=== PATIENT | female | born 2000 | race Caucasian/White ===

== ENCOUNTER 2024-08-08 10:30 | Outpatient (AMB) | payer OTHER, SELFPAY ==
--- NOTE | 2024-08-08 10:34 | A.OFFPC_ITS ---
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 Allergies No Known Allergies Allergy (Verified 08/08/24 10:40) Tobacco use date assessed: 08/08/24 Dental Screening Dental Screen Date: 08/08/24 Did you have a dental visit in the last 12 months?: Yes Did you have a dental problem in the last 6 months where you did not have access to dental care?: No Was dental information given to patient?: Patient has dentist HPI HPI Comments History of Present Illness Details This is a 24-year-old female presenting to establish care. She was last seen in her Pediatrics office around the age of 22. No prior medical records available today. Patient has been having an issue with her left ear for the past month. She says it is sometimes painful like a stinging sensation. It comes and goes. The hearing also is a little muffled and it sounds crackly sometimes. No discharge,fevers, chills, headaches, dizziness. She also endorses a long history of knee pain. This began about 5 years ago. She is followed by [facility]. Patient says she played football in high school but denies any specific injury. No prior surgeries. Reports getting multiple cortisone injections and gel injections and having physical therapy. Patient reports she has had an MRI and x-ray with her orthopedic specialists, but she feels like there is more going on with her knee. 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 She is referred to [facility]. ROS: Constitutional: No unexplained weight loss, fever, chills, fatigue or night sweats. Eyes: No vision changes, blurry vision, double vision, eye pain, eye redness, eye discharge. ENT: denies Sore throat, sinus congestion, runny nose or sneezing. Neurologic: No headache, dizziness, syncope, unilateral weakness, ataxia, numbness or tingling in the extremities. Musculoskeletal: No muscle pain, back pain , see HPI Skin: No rash or tick bites. 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 Psychiatric: No depression or anxiety. Physical exam: Constitutional: Alert, in no distress. Eyes: Pupils are equal, round and reactive to light. Extraocular muscles intact. Ear, Nose and Throat: negative tech test bilaterally. Mastoids nontender bilaterally. No otorrhea bilaterally.. There is mild erythema and mild swelling of the left ear canal. Both canals are occluded by dried brown wax. The TMs are not able to be visualized. Normal nasal mucosa. No nasal discharge. No oral lesions. Neck: Supple, Full range of motion. No lymphadenopathy. Respiratory: Clear to auscultation. Cardiovascular: S1 S2 regular. No murmurs. Knees: Bilateral with no edema or discoloration. Anterior right knee is tender to palpation. There is bilateral knee crepitus. Gait is normal. She has full range of motion of the knees. Negative Stuart maneuver bilaterally. [facility], [facility] Medical History (Updated 08/08/24 @ 13:54 by VAN Faust) Impacted cerumen, bilateral Left otitis externa Chronic pain of right knee Screening for cardiovascular condition Social History (Updated 08/08/24 @ 10:42 by Karrie Montes MA) Housing: House Housing Other:: Lives with her family on a farm. 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 1. Little interest or pleasure in doing things: not at all 2. Feeling down, depressed, or hopeless: not at all 3. Trouble falling or staying asleep, or sleeping too much: not at all 4. Feeling tired or having little energy: not at all 5. Poor appetite or overeating: not at all 6. Feeling bad about yourself - or that you are a failure or have let yourself or your family down: not at all 7. Trouble concentrating on things, such as reading the newspaper or watching television: several days 8. Moving or speaking so slowly that other people could have noticed. Or the opposite - being so fidgety or restless that you have been moving around a lot more than usual: not at all 9. Thoughts that you would be better off or of hurting yourself in some way: not at all Total score: 1 Depression Screening Interpretation: Negative Depression Screening Done: Yes 75251 - PHQ-9 Billing: Yes Source: Developed by Drs. Efrain Conn, Jael Lai, Gallo Worrell and colleagues, with an educational taco from [employer]. Thrive Questionnaire Date Thrive assessed: 08/08/24 I am a: Patient What is your living situation today?: I have a steady place to live Within the past 12 months, did the food you bought not last and you didn't have the money to get more?: Never true Within the past 12 months, did you worry whether your food would run out before you got money to buy more?: Never true Do you have trouble paying for medicines?: No Do you have trouble getting transportation to medical appointments?: Yes Do you have trouble paying your heating and electricity bill?: No Do you have trouble taking care of your child, family member or friend?: No Do you have trouble with day-to-day activities such as bathing, preparing meals, shopping, managing finances, etc.?: No Are you currently unemployed and looking for a job?: No Are you interested in more education?: Yes Please select the resources that you would like help with: Transportation and Education Currently or been in a relationship where the following occur: No concerns reported THRIVE Score: 1 AUDIT C Alcohol Use Questionnaire (AUDIT-C) 1. How often do you have a drink containing alcohol?: Never Total Score: 0 JORGE-7 AMB Questionnaire JORGE-7 Date JORGE - 7 assessed: 08/08/24 Feeling nervous, anxious, or on edge: 1 = Several days Not being able to stop or control worryin = Several days Worrying too much about different things: 1 = Several days Trouble relaxin = Several days Being so restless that it is hard to sit still: 1 = Several days Becoming easily annoyed or irritable: 1 = Several days Feeling afraid as if something awful might happen: 0 = Not at all Total JORGE-7 score (0-4 normal; 5-9 mild; 10-14 moderate; 15-21 severe): 6 Source: Developed by Jael LyW. Ming, Gallo Worrell and colleagues, with an educational taco from [employer]. JORGE-7 Assessment Billing JORGE-7 Assessment Tool: JORGE-7 Assessment 76046 Physical exam (Primary Care) Vital Signs: Last Vital Signs Temp 98.6 F 08/08/24 10:42 Pulse 96 08/08/24 10:42 BP 116/62 08/08/24 10:42 Pulse Ox 97 08/08/24 10:42 Oxygen Delivery Method Room Air 08/08/24 10:42 BMI result Body Mass Index 36.1 Tobacco/Smoking Status: Tobacco use Status Tobacco use date assessed 08/08/24 08/08/24 10:45 Patient Tobacco Use Status Never used Tobacco 08/08/24 10:45 e-Cigarette/Vaping Use Never Used 08/08/24 10:45 PHQ-9: PHQ-9 Score PHQ-9: Total score 1 08/08/24 11:08 Depression Screening Interpretation: Negative Thrive Assessment: Date of Thrive Assessment Date Thrive assessed 08/08/24 08/08/24 10:37 Currently or been in a relationship where the following occur: No concerns reported Coding Level of Care Code New Pt Level 3 (16433) Complex EM visit Add On G2211 Diagnoses Screening for cardiovascular condition Z13.6 Chronic pain of right knee M25.561; G89.29 Left otitis externa H60.92 Impacted cerumen, bilateral H61.23 Additional Codes JORGE-7 Assessment Billing - JORGE-7 Assessment Tool: JORGE-7 Assessment 23497 ([id number]) PHQ-9 - 94052 - PHQ-9 Billing: Yes ([id number]) Assessment & Plan Assessment & Plan (1) Screening for cardiovascular condition: Code(s): Z13.6 - Encounter for screening for cardiovascular disorders Category: Medical (2) Chronic pain of right knee: Code(s): M25.561 - Pain in right knee; G89.29 - Other chronic pain Category: Medical (3) Left otitis externa: Code(s): H60.92 - Unspecified otitis externa, left ear Category: Medical (4) Impacted cerumen, bilateral: Code(s): H61.23 - Impacted cerumen, bilateral Category: Medical Plan I offered the patient a referral for a 2nd opinion from a different orthopedic provider. She will think about this. She was instructed to call her provider at [facility] for follow up. I will request their notes to review her history. Check Lyme, rheumatoid factor, LUC. She will treat left otitis externa with Ciprodex drops and used Debrox drops in the right ear and return in 10 days force cerumen removal. Start Debrox drops 5 days prior to appointment but start Ciprodex drops in the left ear today. Advised patient to follow up if she has worsening pain, fevers or go to the ER if she has severe pain or swelling around her ear or the left side of the face. Agreeable to routine labs. Declined screening for STIs. Orders: Orders Lyme IgG/IgM w/reflex to WB Today G89.29 - Other chronic pain, M25.561 - Pain in right knee, Z13.6 - Encounter for screening for cardiovascular disorders Rheumatoid Factor Today G89.29 - Other chronic pain, M25.561 - Pain in right knee, Z13.6 - Encounter for screening for cardiovascular disorders Lipid Panel Today G89.29 - Other chronic pain, M25.561 - Pain in right knee, Z13.6 - Encounter for screening for cardiovascular disorders Comprehensive Met. 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 5 drps otic (ear) right Q12H 4 days 15 mL 0RF
[2024-08-08 10:42] VITALS: BP 116/62; PULSE 96; TEMP 37; O2SAT 97; BMI 36.1
== END 2024-08-08 11:22 | disposition home or self-care (01) ==
LOC: HO.HMCFM 10:31
PROVIDERS: PCP Physician Assistant Medical; Visit Provider Physician Assistant Medical
DX: Z13.6 Encounter for screening for cardiovascular disorders (principal); M25.561 Pain in right knee; G89.29 Other chronic pain; H60.92 Unspecified otitis externa, left ear; H61.23 Impacted cerumen, bilateral

== ENCOUNTER 2024-08-08 13:51 | Outpatient (REF) | payer OTHER, SELFPAY ==
[2024-08-08 17:44] LABS: Hematocrit 40.6 % (37.0-47.0); Hemoglobin 13.9 g/dl (12.0-16.0); Mean Corpuscular HGB Conc 34.2 g/dl (31.0-35.0); Mean Corpuscular Hemoglobin 30.3 pg (27.0-33.0); Mean Corpuscular Volume 88.5 fL (80.0-98.0); Mean Platelet Volume 11.3 fL (9.4-12.3); Platelet Count 270 X10*3/uL (160-400); Red Blood Count 4.59 X10*6/uL (4.20-5.50); White Blood Count 6.2 X10*3/uL (4.8-10.8)
[2024-08-08 17:49] LABS: Rheumatoid Factor < 13.0 IU/mL (<15.0)
[2024-08-08 17:59] LABS: Alanine Aminotransferase 25 U/L (0-31); Albumin Level 4.4 g/dL (3.5-5.0); Alkaline Phosphatase 62 U/L (39-117); Anion Gap 11 (12-20); Aspartate Amino Transferase 27 U/L (5-31); Bilirubin Total 0.5 mg/dL (0.0-1.0); Blood Urea Nitrogen 11 mg/dL (9-16); Calcium 9.6 mg/dL (8.4-10.2); Carbon Dioxide 27 mmol/L (22-29); Chloride 109 mmol/L (96-108); Cholesterol 191 mg/dL (<200); Estimated Glomerular Filt Rate > 60; Glucose Random 100 mg/dL (60-115); HDL Cholesterol 47 mg/dL (>40); LDL Cholesterol Calculated 127 mg/dL (<100); Sodium 143 mmol/L (135-145); Total Protein 7.4 g/dL (6.5-8.0); Triglycerides 89 mg/dL (<150)
[2024-08-08 18:13] LABS: TSH reflex Free T4 0.86 uIU/mL (0.32-4.0)
[2024-08-09 06:48] LABS: Lyme Abs Screen <0.90 index
[2024-08-12 11:14] LABS: Anti Nuclear Antibody Screen NEGATIVE (NEGATIVE)
== END 2024-08-08 13:52 | disposition home or self-care (01) ==
LOC: HO.WFDLDS 13:51
PROVIDERS: Visit Provider Physician Assistant Medical
DX: Z13.6 Encounter for screening for cardiovascular disorders (principal); G89.29 Other chronic pain; M25.561 Pain in right knee
CPT/HCPCS: 36415; 80053; 80061; 84443; 85027; 86038; 86431; 86617; 86618; 96127; 99202

== ENCOUNTER 2024-08-26 09:37 | Outpatient (AMB) | payer OTHER, SELFPAY ==
--- NOTE | 2024-08-26 09:40 | MHC.PC.OV ---
Vital Signs 08/26/24 09:45 Height 6 ft Weight 266 lb BMI 36.1 BP 112/72 Blood Pressure Location Lt brachial Position Sitting Pulse 91 Pulse Source Pulse Oximeter Temp 98.6 F Temp Source Temporal Artery Scan Pulse Oximetry (%) 98 Oxygen Delivery Method Room Air Intake Visit Reasons: recheck ear/wax removal 30 minutes Intake Note: Stacey presents in the office today for a recheck of her ears. Allergies No Known Allergies Allergy (Verified 08/26/24 09:43) Tobacco use date assessed: 08/26/24 Dental Screening Dental Screen Date: 08/26/24 Did you have a dental visit in the last 12 months?: Yes Did you have a dental problem in the last 6 months where you did not have access to dental care?: No Was dental information given to patient?: Patient has dentist HPI HPI Comments History of Present Illness Details This is a 24-year-old female presenting for follow up on her chronic right knee pain and ear flushing. She used Debrox drops in the right ear and antibiotic drops for the left ear. Reports only minimal pain in the left ear. No fevers or chills. No dizziness. She also endorses a long history of knee pain. This began about 5 years ago. She is followed by [facility]. Patient says she played football in high school but denies any specific injury. No prior surgeries. Reports getting multiple cortisone injections and gel injections and having physical therapy. I received records from [facility]. 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 She is looking for a 2nd opinion. ROS: Constitutional: No unexplained weight loss, fever, chills, fatigue or night sweats. Eyes: No vision changes, blurry vision, double vision, eye pain, eye redness, eye discharge. ENT: denies Sore throat, sinus congestion, runny nose or sneezing. Neurologic: No headache, dizziness, syncope, unilateral weakness, ataxia, numbness or tingling in the extremities. Musculoskeletal: No muscle pain, back pain , see HPI Skin: No rash or tick bites. 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 Psychiatric: No depression or anxiety. Physical exam: Constitutional: Alert, in no distress. Eyes: Pupils are equal, round and reactive to light. Extraocular muscles intact. Ear, Nose and Throat: negative tug test bilaterally. Mastoids nontender bilaterally. No otorrhea bilaterally. Prior to your flushing there is no visible erythema or edema in the anterior ear canals and there is copious impacted brown cerumen bilaterally. The TMs are not able to be visualized prior to flushing. After flushing both ears the TMs appear erythematous and and mildly bulging, and the ear canals are mildly swollen and erythematous. Neck: Supple, Full range of motion. No lymphadenopathy. Respiratory: Clear to auscultation. Cardiovascular: S1 S2 regular. No murmurs. Knees: Bilateral with no edema or discoloration. Anterior right knee is tender to palpation. There is bilateral knee crepitus. Gait is normal. She has full range of motion of the knees. Negative Stuart maneuver bilaterally. [facility] Medical History (Updated 08/26/24 @ 10:55 by VAN Faust) Otitis media, unspecified, bilateral Otitis externa of both ears Impacted cerumen, bilateral Left otitis externa Chronic pain of right knee Screening for cardiovascular condition Social History (Updated 08/26/24 @ 09:45 by Karrie Montes MA) Housing: House Housing Other:: Lives with her family on a farm. 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 Current occupational exposures/hazards: No Cognitive needs: No Hearing needs: Yes Vision needs: No Questionnaire Thrive Questionnaire Date Thrive assessed: 08/08/24 I am a: Patient What is your living situation today?: I have a steady place to live Within the past 12 months, did the food you bought not last and you didn't have the money to get more?: Never true Within the past 12 months, did you worry whether your food would run out before you got money to buy more?: Never true Do you have trouble paying for medicines?: No Do you have trouble getting transportation to medical appointments?: Yes Do you have trouble paying your heating and electricity bill?: No Do you have trouble taking care of your child, family member or friend?: No Do you have trouble with day-to-day activities such as bathing, preparing meals, shopping, managing finances, etc.?: No Are you currently unemployed and looking for a job?: No Are you interested in more education?: Yes Currently or been in a relationship where the following occur: No concerns reported THRIVE Score: 1 JORGE-7 AMB Questionnaire JORGE-7 Date JORGE - 7 assessed: 08/08/24 Source: Developed by Drs. Efrain Conn, Jael Lai, Gallo Worrell and colleagues, with an educational taco from [employer]. Physical exam (Primary Care) Vital Signs: Last Vital Signs Temp 98.6 F 08/26/24 09:45 Pulse 91 08/26/24 09:45 BP 112/72 08/26/24 09:45 Pulse Ox 98 08/26/24 09:45 Oxygen Delivery Method Room Air 08/26/24 09:45 BMI result Body Mass Index 36.1 Tobacco/Smoking Status: Tobacco use Status Tobacco use date assessed 08/26/24 08/26/24 09:47 Patient Tobacco Use Status Never used Tobacco 08/26/24 09:45 e-Cigarette/Vaping Use Never Used 08/26/24 09:45 Thrive Assessment: Date of Thrive Assessment Date Thrive assessed 08/08/24 08/26/24 09:41 Currently or been in a relationship where the following occur: No concerns reported Office Procedures Cerumen Removal From which ear canal was the cerumen removed: bilateral Removal: irrigation Notes: patient tolerated procedure well and ear canal clear [id number] Irrigation/Lavage Coding Level of Care Code Est Pt Level 4 (53608) Diagnoses Chronic pain of right knee M25.561; G89.29 Impacted cerumen, bilateral H61.23 Otitis externa of both ears H60.93 Otitis media, unspecified, bilateral H66.93 CPT Codes Office Procedure - CPT: 22337-Vgm Irrigation/Lavage ([id number]) Assessment & Plan Assessment & Plan (1) Chronic pain of right knee: Code(s): M25.561 - Pain in right knee; G89.29 - Other chronic pain Category: Medical (2) Impacted cerumen, bilateral: Code(s): H61.23 - Impacted cerumen, bilateral Category: Medical (3) Otitis externa of both ears: Code(s): H60.93 - Unspecified otitis externa, bilateral Category: Medical (4) Otitis media, unspecified, bilateral: Code(s): H66.93 - Otitis media, unspecified, bilateral Category: Medical Plan After reviewing the risks and benefits of the procedure the patient gave verbal consent for irrigation of both ears to remove the cerumen. This was done successfully. She had mild dizziness towards the end of the procedure which resolved after a few minutes of sitting. She was advised not to drive if she has recurrent dizziness. After cerumen removal patient reported she could hear normally out of both ears. Reexamination after flushing is consistent with bilateral otitis externa and otitis media. Used Ciprodex drops in both ears for the next 7 days and take Augmentin 1 pill twice daily for 10 days. Side effects and administration reviewed. Take with food. Recommended yogurt and probiotics. Recommended follow up appointment in 1 week for recheck, but the patient declined. Patient says she will call if she has continued issues with pain or if hearing changes. Refer to [facility] for 2nd opinion. Schedule physical exam in a few months. Orders: Orders AMB Cerumen Removal Today H61.23 - Impacted cerumen, bilateral Medications: New amoxicillin-pot clavulanate 875-125 mg Take with food 1 tab PO BID 10 days 20 tabs 0RF Changed From ciprofloxacin-dexamethasone 0.3-0.1 % 4 drps otic (ear) left BID 7 days 7.5 mL 0RF To ciprofloxacin-dexamethasone 0.3-0.1 % 4 drps otic (ears) BID 7 days 7.5 mL 0RF
[2024-08-26 09:45] VITALS: BP 112/72; PULSE 91; TEMP 37; O2SAT 98; BMI 36.1
== END 2024-08-26 10:50 | disposition home or self-care (01) ==
LOC: HO.HMCFM 09:38
PROVIDERS: PCP Physician Assistant Medical; Visit Provider Physician Assistant Medical
DX: M25.561 Pain in right knee (principal); G89.29 Other chronic pain; H61.23 Impacted cerumen, bilateral; H60.93 Unspecified otitis externa, bilateral; H66.93 Otitis media, unspecified, bilateral

== ENCOUNTER → 2024-08-26 09:37 | Outpatient (BNVA) | payer OTHER, SELFPAY | PROVIDERS: PCP Physician Assistant Medical; Visit Provider Physician Assistant Medical | DX: H61.23 Impacted cerumen, bilateral (principal); H60.93 Unspecified otitis externa, bilateral; H66.93 Otitis media, unspecified, bilateral; M25.561 Pain in right knee; G89.29 Other chronic pain | CPT/HCPCS: 69209; 99212 ==